=== PATIENT | female | born 1975 | race African-American/Black ===

== ENCOUNTER 2017-07-17 20:11 | Emergency (ER) | payer SELFPAY ==
[~2017-07-17] VITALS: Ht 167.6 cm; Wt 90.0 kg
[2017-07-17 20:25] VITALS: BP 74/57; PULSE 83; RESP 16; TEMP 97.8; O2SAT 98
[2017-07-17 20:31] VITALS: BP 74/57
[2017-07-17] MEDS ORDERED: SODIUM CHLOR 0.9% 1000 ML INJ 1,000 ML IV ONE (20:41)
[2017-07-17] MEDS ORDERED: SODIUM CHLORIDE 0.9% FLUSH 10 ML FLUSH IVF PRN (20:45)
--- NOTE | 2017-07-17 20:48 | PD ---
HPI Chief Complaint: Chest Pain Time Seen by Provider: 20:41 Travel History International Travel<30 days: No Contact w/Intl Traveler<30days: No Traveled to known affect area: No History of Present Illness HPI 41-year-old female patient with history of tachydysrhythmia, recently moved from [place], here because she has had palpitations and chest discomfort and feels like her heart is beating fast. She states that these are the same symptoms she has had in the past, has been feeling little dizzy as well. She states that usually she can get it to stop but could not get it to stop today. Modifying Factors: None Associated Signs & Symptoms: Fast heart rate, chest discomfort, dizziness Risk Factors: Previous history of tachydysrhythmia PFSH Past Medical History Anxiety: Yes Depression: Yes Heart Rhythm Problems: Yes (SVT) Hypertension: Yes ?: Not Past Surgical History Other Surgery: Yes (NECK) Social History Alcohol Use: No Tobacco Use: Yes Substance Use: No Allergies-Medications (Allergen,Severity, Reaction): Coded Allergies: No Known Allergies (Unverified , 07/17/17) Review of Systems Except as stated in HPI: all other systems reviewed are Neg Physical Exam Narrative GENERAL: Well-developed middle-age -[place] female patient currently in mild distress. Awake and oriented 3. SKIN: Focused skin assessment warm/dry. HEAD: Atraumatic. Normocephalic. EYES: Pupils equal and round. No scleral icterus. No injection or drainage. ENT: No nasal bleeding or discharge. Mucous membranes pink and moist. NECK: Trachea midline. No JVD. Supple. CARDIOVASCULAR: Fast and irregularly irregular. No murmur appreciated. RESPIRATORY: No accessory muscle use. Clear to auscultation. Breath sounds equal bilaterally. GASTROINTESTINAL: Abdomen soft, non-tender, nondistended. Hepatic and splenic margins not palpable. MUSCULOSKELETAL: No obvious deformities. No clubbing. No cyanosis. No edema. NEUROLOGICAL: Awake and alert. No obvious cranial nerve deficits. Motor grossly within normal limits. Normal speech. PSYCHIATRIC: Appropriate mood and affect; insight and judgment normal. Data Data Last Documented VS Vital Signs Date Time Temp Pulse Resp B/P (MAP) Pulse Ox O2 Delivery O2 Flow Rate FiO2 07/17/17 21:58 72 16 120/82 (95) 100 Room Air 07/17/17 20:25 97.8 Orders Orders Electrocardiogram (07/17/17 20:41) Complete Blood Count With Diff (07/17/17 20:41) Comprehensive Metabolic Panel (07/17/17 20:41) Magnesium (Mg) (07/17/17 20:41) Ckmb (Isoenzyme) Profile (07/17/17 20:41) Troponin I (07/17/17 20:41) Act Partial Throm Time (Ptt) (07/17/17 20:41) Prothrombin Time / Inr (Pt) (07/17/17 20:41) Chest, Single Ap (07/17/17 20:41) Ecg Monitoring (07/17/17 20:41) Iv Access Insert/Monitor (07/17/17 20:41) Oximetry (07/17/17 20:41) Sodium Chloride 0.9% Flush (Ns Flush) (07/17/17 20:45) Sodium Chlor 0.9% 1000 Ml Inj (Ns 1000 M (07/17/17 20:41) Ed Urine Pregnancytest Poc (07/17/17 20:41) CKMB (07/17/17 21:00) CKMB% (07/17/17 21:00) Ed Discharge Order (07/17/17 22:14) Labs Laboratory Tests Test 07/17/17 21:00 White Blood Count 5.8 TH/MM3 Red Blood Count 5.04 MIL/MM3 Hemoglobin 13.4 GM/DL Hematocrit 40.8 % Mean Corpuscular Volume 80.8 FL Mean Corpuscular Hemoglobin 26.5 PG Mean Corpuscular Hemoglobin Concent 32.8 % Red Cell Distribution Width 14.6 % Platelet Count 248 TH/MM3 Mean Platelet Volume 9.2 FL Neutrophils (%) (Auto) 40.8 % Lymphocytes (%) (Auto) 53.4 % Monocytes (%) (Auto) 4.9 % Eosinophils (%) (Auto) 0.3 % Basophils (%) (Auto) 0.6 % Neutrophils # (Auto) 2.4 TH/MM3 Lymphocytes # (Auto) 3.1 TH/MM3 Monocytes # (Auto) 0.3 TH/MM3 Eosinophils # (Auto) 0.0 TH/MM3 Basophils # (Auto) 0.0 TH/MM3 CBC Comment DIFF FINAL Differential Comment Prothrombin Time 10.8 SEC Prothromb Time International Ratio 1.1 RATIO Activated Partial Thromboplast Time 26.9 SEC Blood Urea Nitrogen 14 MG/DL Creatinine 1.04 MG/DL Random Glucose 102 MG/DL Total Protein 6.7 GM/DL Albumin 3.5 GM/DL Calcium Level 8.8 MG/DL Magnesium Level 2.0 MG/DL Alkaline Phosphatase 54 U/L Aspartate Amino Transf (AST/SGOT) 13 U/L Alanine Aminotransferase (ALT/SGPT) 16 U/L Total Bilirubin 0.3 MG/DL Sodium Level 144 MEQ/L Potassium Level 3.7 MEQ/L Chloride Level 110 MEQ/L Carbon Dioxide Level 24.3 MEQ/L Anion Gap 10 MEQ/L Estimat Glomerular Filtration Rate 71 ML/MIN Total Creatine Kinase 198 U/L Troponin I 0.02 NG/ML [facility] Medical Decision Making Medical Screen Exam Complete: Yes Emergency Medical Condition: Yes Medical Record Reviewed: Yes Interpretation(s) EKG shows narrow complex tachycardia at a rate of 150 bpm with occasional PVCs. No signs of acute ST elevations or depressions. Laboratory Tests Test 07/17/17 21:00 Mean Corpuscular Hemoglobin 26.5 PG (27.0-34.0) Lymphocytes (%) (Auto) 53.4 % (9.0-44.0) Creatinine 1.04 MG/DL (0.50-1.00) Aspartate Amino Transf (AST/SGOT) 13 U/L (15-37) Chloride Level 110 MEQ/L (98-107) Estimat Glomerular Filtration Rate 71 ML/MIN (>89) Total Creatine Kinase 198 U/L (26-192) Differential Diagnosis Tachydysrhythmia: SVT versus sinus tachycardia Narrative Course Patient had a narrow complex tachycardia of 150 initially but while she was in the ER, her heart rate returned to normal in the 70s. Patient has had this issue in the past as well. She was given a small dose of IV fluids and is possible that this may have helped. Lab work was otherwise fairly unremarkable. My plan would be to release the patient at this point with follow -up to cardiology. Patient has metoprolol which she takes on a regular basis but she states it does not work sometimes. This may be something she needs discussed with cardiology as well. Return for any worsening in symptoms as necessary. The plan has been discussed with her and she states understanding. Diagnosis Primary Impression: Tachycardia Referrals: Osman Tovar MD Disposition: 01 DISCHARGE HOME Condition: Stable [place],Rewadee MD July 17, 2017 20:48
[2017-07-17 20:54] VITALS: BP 121/72; PULSE 85; RESP 18; O2SAT 98
--- NOTE | 2017-07-17 21:01 | RADRPT ---
EXAM DATE/TIME: 07/17/2017 20:48 [facility] COMPARISON: No previous studies available for comparison. INDICATIONS : Chest pain and shortness of breath. MEDICAL HISTORY : None. SURGICAL HISTORY : Neck surgery. ENCOUNTER: Initial ACUITY: 1 day PAIN SCORE: 6/10 LOCATION: chest FINDINGS: 2 portable frontal views of the chest show a top normal heart size. Pulmonary vasculature is unremark able. Lungs are clear without infiltrate or effusion. Cervical spinal fusion plate noted. CONCLUSION: No acute disease. Gustabo Fam Jr., MD on July 17, 2017 at 20:58 Board Certified Radiologist. This report was verified electronically.
[2017-07-17 21:02] VITALS: RESP 16
[2017-07-17 21:20] LABS: AUTOMATED NEUTROPHIL # 2.4 TH/MM3 (1.8-7.7); BASOPHIL % 0.6 % (0.0-2.0); EOSINOPHIL % 0.3 % (0.0-4.0); HEMATOCRIT 40.8 % (35.0-46.0); HEMOGLOBIN 13.4 GM/DL (11.6-15.3); LYMPH % 53.4 % (9.0-44.0); LYMPHOCYTE # 3.1 TH/MM3 (1.0-4.8); MEAN CELL VOLUME 80.8 FL (80.0-100.0); MEAN CORPUSCULAR HEMOGLOBIN 26.5 PG (27.0-34.0); MEAN CORPUSCULAR HGB CONC 32.8 % (32.0-36.0); MEAN PLATELET VOLUME 9.2 FL (7.0-11.0); MONO % 4.9 % (0.0-8.0); MONOCYTE # 0.3 TH/MM3 (0-0.9); NEUT % 40.8 % (16.0-70.0); PLATELET COUNT 248 TH/MM3 (150-450); RED BLOOD COUNT 5.04 MIL/MM3 (4.00-5.30); RED CELL DISTRIBUTION WIDTH 14.6 % (11.6-17.2); WHITE BLOOD COUNT 5.8 TH/MM3 (4.0-11.0)
[2017-07-17 21:46] LABS: INTERNATIONAL NORMALIZED RATIO 1.1 RATIO; PROTHROMBIN TIME - PATIENT 10.8 SEC (9.8-11.6)
[2017-07-17 21:52] LABS: ALBUMIN 3.5 GM/DL (3.4-5.0); AST (GOT) 13 U/L (15-37); BICARBONATE 24.3 MEQ/L (21.0-32.0); BLOOD UREA NITROGEN 14 MG/DL (7-18); CALCIUM 8.8 MG/DL (8.5-10.1); CHLORIDE 110 MEQ/L (98-107); CREATININE 1.04 MG/DL (0.50-1.00); GLOMERULAR FILTRATION RATE 71 ML/MIN (>89); GLUCOSE,RANDOM 102 MG/DL (74-106); SODIUM (NA) 144 MEQ/L (136-145)
[2017-07-17 21:53] LABS: ALT (GPT) 16 U/L (10-53)
[2017-07-17 21:58] VITALS: BP 120/82; PULSE 72; RESP 16; O2SAT 100
[2017-07-17 22:06] LABS: ALKALINE PHOSPHATASE 54 U/L (45-117); TOTAL BILIRUBIN ADULT 0.3 MG/DL (0.2-1.0); TOTAL PROTEIN 6.7 GM/DL (6.4-8.2); TROPONIN I 0.02 NG/ML (0.02-0.05)
--- NOTE | 2017-07-18 18:23 | EKG ---
Date Performed: 07/17/2017 Time Performed: 20:42:18 PTAGE: 41 years EKG: NARROW COMPLEX TACHYCARDIA PVCS BORDERLINE LEFT AXIS DEVIATION INTRAVENTRICULAR CONDUCTION DELAY ABNORMAL ECG NO PREVIOUS TRACING DOCTOR: Miguel Estes Interpretating Date/Time 07/18/2017 18:22:51
[2017-07-24] MEDS ORDERED: METO50TA PO (13:18)
== END 2017-07-17 22:42 | disposition home or self-care (01) ==
LOC: NEPE 20:11
DX: I47.1 Supraventricular tachycardia (principal); Z72.0 Tobacco use
CPT/HCPCS: 71045; 80053; 82550; 82552; 83735; 84484; 84703; 85025; 85610; 85730; 93005; 99285; J7030

== ENCOUNTER 2017-07-24 12:15 | Observation (INO) | END 2017-07-25 16:56 | disposition home or self-care (01) | DX: R07.89 Other chest pain (principal); I10 Essential (primary) hypertension; I47.1 Supraventricular tachycardia; R00.1 Bradycardia, unspecified; I49.3 Ventricular premature depolarization; R94.31 Abnormal electrocardiogram [ECG] [EKG]; R06.02 Shortness of breath; I25.2 Old myocardial infarction; F41.9 Anxiety disorder, unspecified; F32.9 Major depressive disorder, single episode, unspecified; F12.90 Cannabis use, unspecified, uncomplicated; F17.200 Nicotine dependence, unspecified, uncomplicated; Z79.899 Other long term (current) drug therapy | CPT/HCPCS: 71045; 78452; 80053; 82550; 82552; 83735; 83880; 84484; 84703; 85025; 85379; 85610; 85730; 93005; 93017; 93970; 99285; A9502; G0378; J2785 ==